=== PATIENT | male | born 1985 | race Caucasian/White ===

== ENCOUNTER → 2020-12-22 | Day surgery (SDC) | payer OTHER ==
[2020-12-20 13:18] LABS: BASOPHILS % 0.7 % (0.0-1.0); EOSINOPHILS # (AUTO) 0.2 (0.0-0.4); EOSINOPHILS % 3.3 % (0.0-6.0); HEMATOCRIT 42.6 % (38.2-49.6); HEMOGLOBIN 14.6 g/dL (14.0-18.0); LYMPHOCYTES # (AUTO) 2.2 (1.0-3.2); LYMPHOCYTES % 39.7 % (18.0-39.1); MEAN CORPUSCULAR HEMOGLOBIN 30.7 pg (28-32); MEAN CORPUSCULAR HGB CONC 34.3 g/dL (31-35); MEAN CORPUSCULAR VOLUME 89.5 fL (81-99); MONOCYTES # (AUTO) 0.5 (0.2-0.8); MONOCYTES % 8.2 % (4.4-11.3); NEUTROPHILS # (AUTO) 2.6 (2.1-6.9); NEUTROPHILS % 47.9 % (38.7-80.0); PLATELET COUNT 224 x10e3/uL (140-360); RED BLOOD COUNT 4.76 x10e6/uL (4.3-5.7); RED CELL DISTRIBUTION WIDTH 11.7 % (11.7-14.4)
[2020-12-20 13:36] LABS: ALANINE AMINOTRANSFERASE 32 IU/L (0-55); ALBUMIN 4.1 g/dL (3.5-5.0); ALBUMIN/GLOBULIN RATIO 1.4 (0.8-2.0); ALKALINE PHOSPHATASE 63 IU/L (40-150); ANION GAP 13.1 mmol/L (8-16); BLOOD UREA NITROGEN 7 mg/dL (7-26); BUN/CREATININE RATIO 8 (6-25); CALCIUM 8.9 mg/dL (8.4-10.2); CARBON DIOXIDE 23 mmol/L (22-29); CHLORIDE 107 mmol/L (98-107); CREATININE, SERUM 0.86 mg/dL (0.72-1.25); EST GLOMERULAR FILTRATION RATE > 60 ML/MIN (60-); GLUCOSE 96 mg/dL (74-118); POTASSIUM 4.1 mmol/L (3.5-5.1); SODIUM 139 mmol/L (136-145)
[~2020-12-22] MED LIST: BUPIVACAINE 0.25% 30ML SDV ONE; DEXAMETHASONE SOD PHOS INJ 4 MG/ML VIAL ONE; EPHEDRINE SULFATE INJ 50 MG/ML VIAL ONE; FENTANYL CITRATE/PF 100MCG/2 ML INJ ONE; GLYCOPYRROLATE INJ 0.2 MG/ML VIAL ONE; LIDOCAINE HCL 2% JELLY 5 ML TUBE ONE; LIDOCAINE HCL 2% LOCAL INJ 5 ML SDV VIAL INJ ONE; NEOSTIGMINE 1 MG/ML 10ML VIAL ONE; ONDANSETRON HCL INJ 2MG/ML 2ML 2 MG/ML VIAL ONE; POVIDONE IODINE 0.05% 0.05 % ML PO ONE; PROPOFOL IV EMULSION 10 MG/ML 20 ML VIAL ONE; ROCURONIUM BROMIDE 10 MG/ML 5ML VIAL IV ONE; SEVOFLURANE INHAL SOLN 250 ML PEN BTL ONE
[2020-12-22 12:10] VITALS: BP 120/70
== END | disposition home or self-care (01) ==
LOC: OR 06:55
PROVIDERS: ATTEND Surgery
DX: K80.10 Calculus of gallbladder with chronic cholecystitis without obstruction (principal); K82.8 Other specified diseases of gallbladder; K58.9 Irritable bowel syndrome, unspecified; Z86.16 Personal history of COVID-19
CPT/HCPCS: 36415; 47562; 80053; 85025; 88304; C1766; J1100; J2001 ×2; J2405; J2704; J2710; J3010